=== PATIENT | female | born 1990 | race Hispanic/Latino ===

== ENCOUNTER 2018-05-22 06:47 | Inpatient (IN) | payer OTHER ==
--- NOTE | 2018-05-22 08:11 | ED PDOC ---
HPI: Psych/Substance Abuse Time Seen by Provider: 05/22/18 07:08 Chief Complaint (Nursing): Psychiatric Evaluation Chief Complaint (Provider): Psychiatric Evaluation History Per: Patient, Family History/Exam Limitations: no limitations Onset/Duration Of Symptoms: Hrs Current Symptoms Are (Timing): Still Present Additional Complaint(s): Francheska Avalos is a 28 year old female with no past medical or psychiatric history who was brought to the ED by EMS for psychiatric evaluation. Patients uncle is at bedside providing additional history. Patient states that she might have had a panic attack this morning while she was in bed she felt paralyzed and couldnt move. She states that she has not been sleeping properly for over a week and attributes this to work and life stress. Uncle reports that relative called police and states that patient has not had any history of diagnosed psychiatric disorders. Patients admits that she has had previous suicidal thoughts but is unsure of their extent. Of note, uncle notes that patient lost her brother a couple months ago due to a drug overdose. Patient offers no other medical complaints at this time. PMD: none provided Past Medical History Reviewed: Historical Data, Nursing Documentation, Vital Signs Vital Signs: Last Vital Signs Temp 97.5 F L 05/22/18 06:53 Pulse 122 H 05/22/18 06:53 Resp 25 H 05/22/18 06:53 BP 145/79 05/22/18 06:53 Pulse Ox 100 05/22/18 06:53 - Medical History PMH: No Chronic Diseases - Surgical History Surgical History: No Surg Hx - Family History Family History: States: Unknown Family Hx - Social History Current smoker - smoking cessation education provided: No Alcohol: Social Drugs: Denies - Allergies Allergies/Adverse Reactions: Allergies Allergy/AdvReac Type Severity Reaction Status Date / Time No Known Allergies Allergy Verified 05/22/18 07:04 Review of Systems ROS Statement: Except As Marked, All Systems Reviewed And Found Negative Psych: Positive for: Other (Panic attack) Physical Exam - Reviewed Nursing Documentation Reviewed: Yes Vital Signs Reviewed: Yes - Physical Exam Appears: Positive for: Non-toxic, No Acute Distress Head Exam: Positive for: ATRAUMATIC, NORMAL INSPECTION, NORMOCEPHALIC Skin: Positive for: Normal Color, Warm, DRY Eye Exam: Positive for: Normal appearance Respiratory: Negative for: Respiratory Distress Extremity: Positive for: Normal ROM Neurologic/Psych: Positive for: Alert, Oriented. Negative for: Motor/Sensory Deficits - Laboratory Results Result Diagrams: 05/22/18 09:35 05/22/18 09:35 - ECG O2 Sat by Pulse Oximetry: 100 (RA) Pulse Ox Interpretation: Normal Medical Decision Making Medical Decision Making: Time: 7:37 Plan: --Crisis Evaluation Scribe Attestation: Documented by Juju Valencia, acting as a scribe for Dorie Randall MD. Provider Scribe Attestation: All medical record entries made by the Scribe were at my direction and personally dictated by me. I have reviewed the chart and agree that the record accurately reflects my personal performance of the history, physical exam, medical decision making, and the department course for this patient. I have also personally directed, reviewed, and agree with the discharge instructions and disposition. labs reviewed. no acute findings. Disposition - Clinical Impression Clinical Impression: Depression - Patient ED Disposition Is Patient to be Admitted: Yes Doctor Will See Patient In The: Hospital - Disposition Disposition: Transfer of Care Disposition Time: 10:15 Condition: STABLE Instructions: Depression Forms: [employer] (Indonesian) - Pt Status Changed To: Hospital Disposition Of: Inpatient - Admit Certification Admit to Inpatient:: After my assessment, the patient will require hospitalization for at least two midnights. This is because of the severity of symptoms shown, intensity of services needed, and/or the medical risk in this patient being treated as an outpatient. - POA Present On Arrival: None
[2018-05-22 10:03] LABS: BASO % 0.2 % (0.0-2.0); HEMOGLOBIN 13.6 g/dL (12.0-16.0); LYMPH # 1.6 K/uL (1.0-4.3); LYMPH % 15.8 % (20.0-40.0); MEAN CELL VOLUME 84.3 fl (81.0-99.0); MEAN CORPUSCULAR HEMOGLOBIN 27.6 pg (27.0-31.0); MEAN CORPUSCULAR HGB CONC 32.8 g/dL (33.0-37.0); MEAN PLATELET VOLUME 8.2 fl (7.2-11.7); MONO # 0.5 K/uL (0.0-0.8); MONO % 4.7 % (0.0-10.0); NEUT # 7.8 K/uL (1.8-7.0); NEUT % 79.3 % (50.0-75.0); RBC 4.91 Mil/uL (3.80-5.20); WHITE BLOOD COUNT 9.9 K/uL (4.8-10.8)
[2018-05-22 10:17] LABS: SQUAMOUS EPITHIAL 4 /hpf (0-5); URINE BACTERIA RARE (<OCC); URINE BILIRUBIN NEGATIVE (NEGATIVE); URINE BLOOD LARGE (NEGATIVE); URINE CLARITY CLOUDY (Clear); URINE COLOR YELLOW (YELLOW); URINE GLUCOSE (UA) NEG (NEGATIVE); URINE LEUKOCYTE ESTERASE NEG Leu/uL (Negative); URINE PROTEIN NEGATIVE (NEGATIVE); URINE UROBILINOGEN 0.2-1.0 mg/dL (0.2-1.0)
[2018-05-22 10:22] LABS: ALB/GLOB RATIO 1.3 (1.0-2.1); ALBUMIN 4.7 g/dL (3.5-5.0); ALT/SGPT 22 U/L (9-52); AST/SGOT 27 U/L (14-36); BLOOD UREA NITROGEN 9 mg/dl (7-17); CALCIUM 9.8 mg/dL (8.4-10.2); GFR NON-AFRICAN AMERICAN > 60
[2018-05-22 10:32] LABS: BARBITURATES, UR NEGATIVE (NEGATIVE); BENZODIAZEPINES, UR NEGATIVE (NEGATIVE); OPIATES, UR NEGATIVE (NEGATIVE); PHENCYCLIDINE, UR NEGATIVE (NEGATIVE)
--- NOTE | 2018-05-22 10:32 | RAD ---
Date of service: 05/22/2018 PROCEDURE: CHEST RADIOGRAPH, 1 VIEW HISTORY: medical clearnce COMPARISON: None available. FINDINGS: LUNGS: Clear. Study slightly apical lordotic projection PLEURA: No pneumothorax or pleural fluid seen. CARDIOVASCULAR: No aortic atherosclerotic calcification present. Normal. OSSEOUS STRUCTURES: No significant abnormalities. VISUALIZED UPPER ABDOMEN: Normal. OTHER FINDINGS: None. IMPRESSION: No active disease.
[2018-05-22 11:29] VITALS: O2SAT 98
[2018-05-22] MEDS ORDERED: DiphenhydrAMINE 50 mg/ml Inj IM PRN (12:39)
[2018-05-22] MEDS ORDERED: Alum-Mag Hydrox-Simethicone Susp (30 mL) PO PRN (12:39)
[2018-05-22] MEDS ORDERED: Magnesium Hydroxide Susp 30 ml UD PO PRN (12:39)
--- NOTE | 2018-05-22 14:50 | PCM.PSYCH ---
Initial Psychiatric Evaluation - Initial Psychiatric Evaluation Type of Admission: Voluntary Legal Status: Capacity Chief Complaint (in patient's own words): I feel I could not continue in life like that History of Present Illness and Precipitating Events: pt is 28 ys old female currently not in formal psychiatric treatment, brought to ER by EMS after expressing a panic attack feeling her body is paralyzed and experiencing paranoid delusions feeling that there are people who invaded her house to hate her pt has been increasingly depressed since last october as she lost her brother after he overdosed on opiates and was brain for four days, pt also has been having difficulties at work and feeling that she is being mistreated, last week pt broke up a relation she had for past three years, pt reported depressed mood feeling hopeless and helpless, low energy, increased anxiety with panic attacks feeling as if her body is paralyzed , poor sleep and poor appetite , paranoid delusions, feeling being monitored and having people in her house following her reported passive suicidal ideation without active [plan denied perceptual disturbances, denied substance use Current Medications: Active Medications Generic Name Dose Route Start Last Admin Trade Name Freq PRN Reason Stop Dose Admin Acetaminophen 650 mg 05/22/18 12:39 Tylenol 325mg Tab PO Q4 PRN Pain, moderate (4-7) Al Hydrox/Mg Hydrox/Simethicone 30 ml 05/22/18 12:39 Maalox Plus 30 Ml PO Q4 PRN Dyspepsia Diphenhydramine HCl 50 mg 05/22/18 12:39 Benadryl IM Q6 PRN Extrapyramidal S/S Unable PO Diphenhydramine HCl 50 mg 05/22/18 12:39 Benadryl PO Q6 PRN Extrapyramidal Symptoms Escitalopram Oxalate 5 mg 05/22/18 14:30 Lexapro PO 05/22/18 14:31 STAT STA Escitalopram Oxalate 5 mg 05/23/18 09:00 Lexapro PO DAILY VU Haloperidol 5 mg 05/22/18 12:39 Haldol PO Q4 PRN Agitation Haloperidol Lactate 5 mg 05/22/18 12:39 Haldol IM Q4 PRN Agitation, Unable to Take PO Lorazepam 2 mg 05/22/18 12:39 Ativan IM Q4 PRN Anxiety/Agitation,Unable PO Lorazepam 1 mg 05/22/18 14:29 Ativan PO Q8 PRN Anxiety Magnesium Hydroxide 30 ml 05/22/18 12:39 Milk Of Magnesia PO HS PRN Constipation Trazodone HCl 50 mg 05/22/18 22:00 Desyrel PO HS VU Past Psychiatric History - Past Psychiatric History Nature of Treatment: pt received psychotherapy , no hx of treatment by psychiatrist History of ETOH/Drug Use: denied History of Family Illness: brother, hx of substance use Pertinent Medical Hx (Current Medical&Sleep Prob, Allergies): Allergies Allergy/AdvReac Type Severity Reaction Status Date / Time No Known Allergies Allergy Verified 05/22/18 07:04 Norgestimate-Ethinyl Estradiol [Syn-Cs-Kkpywqib Tablet] 1 tab PO DAILY 05/22/18 Mental Status Examination - Personal Presentation Personal Presentation: Looks stated age - Affect Affect: Constricted, Depressed - Motor Activity Motor Activity: Psychomotor Retardation - Reliability in Providing Information Reliability in Providing Information: Good - Speech Speech: Relevant - Mood Mood: Depressed, Anxious - Formal Thought Process Formal Thought Process: Circumstantial - Obsessions/Compulsions Obsessions: No Compulsions: No - Cognitive Functions Orientation: Person, Place, Situation, Time Attention/Concentration: Attentive Judgement: Intact, as evidence by: Good judgement, Intact, as evidence by: Insight regarding need for hospitalization - Risk Risk: Suicidal, Diminished functioning - Strength & Assets Inventory Strength & Assets Inventory: Family support, Employment history - Limitations Additional comments: relationship problems DSM 5 DX - DSM 5 DSM 5 Diagnosis: major depression severe with psychotic features panic disorder - Recommended/Plan of Treatment Treatment Recommendations and Plan of Treatment: start lexapro 5mg / trazodone 50mg / will increase gradually CBT group and supportive therapy
--- NOTE | 2018-05-22 16:29 | CP.PCM.CON ---
History of Present Illness - History of Present Illness History of Present Illness: Pt is a 26 yo female with past medical history of dysmenorrhea is admitted to psych for panic disorder. The patient felt that her body was paralyzed, with feelings of paranoia. She states that the recent of her brother, due to an overdose a month ago, with decrease sleep, and increase work demand, contributed to her current condition. The patient works as a marketing stragegist for [employer] and states that she went back to work prematurely after her brother's . Patient is complaining of mild burning upon urination and constipation. patient denies polyurea, polydipsea, polyphasia, or superpubic tenderness. abdominal exam was non contributory. PMHx- Dysmenorrhea Allergies- PNC Medications-Trylosprintec Social Hx: patient drinks 4-5 drinks a week and smokes 1-2 cigarretes a week. patient states she used cocaine a few times in college but none since then. FHx: suicide (brother) Review of Systems - Review of Systems All systems: reviewed and no additional remarkable complaints except Past Patient History - Past Social History Alcohol: Social Drugs: Denies - CARDIAC Hx Cardiac Disorders: No - PULMONARY Hx Respiratory Disorders: No - NEUROLOGICAL Hx Neurological Disorder: Yes Hx Syncope: Yes - HEENT Hx HEENT Problems: No - RENAL Hx Chronic Kidney Disease: No - ENDOCRINE/METABOLIC Hx Endocrine Disorders: No - HEMATOLOGICAL/ONCOLOGICAL Hx Blood Disorders: No - INTEGUMENTARY Hx Dermatological Problems: No - MUSCULOSKELETAL/RHEUMATOLOGICAL Hx Musculoskeletal Disorders: No - GASTROINTESTINAL Hx Gastrointestinal Disorders: No - GENITOURINARY/GYNECOLOGICAL Hx Genitourinary Disorders: No - PSYCHIATRIC Hx Substance Use: No - SURGICAL HISTORY Hx Surgeries: Yes Other/Comment: Right ring finger surgery - ANESTHESIA Hx Anesthesia: Yes Hx Anesthesia Reactions: No Hx Malignant Hyperthermia: No Meds Allergies/Adverse Reactions: Allergies Allergy/AdvReac Type Severity Reaction Status Date / Time No Known Allergies Allergy Verified 05/22/18 07:04 - Medications Medications: Current Medications Acetaminophen (Tylenol 325mg Tab) 650 mg PO Q4 PRN PRN Reason: Pain, moderate (4-7) Al Hydrox/Mg Hydrox/Simethicone (Maalox Plus 30 Ml) 30 ml PO Q4 PRN PRN Reason: Dyspepsia Diphenhydramine HCl (Benadryl) 50 mg IM Q6 PRN PRN Reason: Extrapyramidal S/S Unable PO Diphenhydramine HCl (Benadryl) 50 mg PO Q6 PRN PRN Reason: Extrapyramidal Symptoms Escitalopram Oxalate (Lexapro) 5 mg PO DAILY VU Haloperidol (Haldol) 5 mg PO Q4 PRN PRN Reason: Agitation Haloperidol Lactate (Haldol) 5 mg IM Q4 PRN PRN Reason: Agitation, Unable to Take PO Lorazepam (Ativan) 2 mg IM Q4 PRN PRN Reason: Anxiety/Agitation,Unable PO Lorazepam (Ativan) 1 mg PO Q8 PRN PRN Reason: Anxiety Magnesium Hydroxide (Milk Of Magnesia) 30 ml PO HS PRN PRN Reason: Constipation Trazodone HCl (Desyrel) 50 mg PO HS VU Physical Exam - Constitutional Appears: In Acute Distress - Head Exam Head Exam: NORMAL INSPECTION - Eye Exam Eye Exam: Normal appearance Pupil Exam: NORMAL ACCOMODATION - ENT Exam ENT Exam: Mucous Membranes Moist - Neck Exam Neck exam: Positive for: Normal Inspection - Respiratory Exam Respiratory Exam: Clear to Auscultation Bilateral, NORMAL BREATHING PATTERN. absent: Rhonchi, Wheezes - Cardiovascular Exam Cardiovascular Exam: REGULAR RHYTHM, +S1, +S2 - GI/Abdominal Exam GI & Abdominal Exam: Normal Bowel Sounds, Soft - Back Exam Back exam: absent: CVA tenderness (L), CVA tenderness (R) - Skin Skin Exam: Dry, Warm Results - Vital Signs Recent Vital Signs: Last Vital Signs Temp 99.5 F 05/22/18 11:33 Pulse 78 05/22/18 11:33 Resp 20 05/22/18 11:33 BP 138/78 05/22/18 11:33 Pulse Ox 98 05/22/18 11:24 - Labs Result Diagrams: 05/22/18 09:35 05/22/18 09:35 Labs: Laboratory Results - last 24 hr 05/22/18 05/22/18 05/22/18 09:35 09:35 09:43 WBC 9.9 RBC 4.91 Hgb 13.6 Hct 41.4 MCV 84.3 MCH 27.6 MCHC 32.8 L RDW 13.0 Plt Count 383 MPV 8.2 Neut % (Auto) 79.3 H Lymph % (Auto) 15.8 L Bos[place] % (Auto) 4.7 Eos % (Auto) 0.0 Baso % (Auto) 0.2 Neut # (Auto) 7.8 H Lymph # (Auto) 1.6 Bos[place] # (Auto) 0.5 Eos # (Auto) 0.0 Baso # (Auto) 0.0 Sodium 140 Potassium 3.9 Chloride 98 Carbon Dioxide 24 Anion Gap 22 H BUN 9 Creatinine 0.6 L Est GFR ( Amer) > 60 Est GFR (Non-Af Amer) > 60 Random Glucose 150 H Calcium 9.8 Total Bilirubin 1.1 AST 27 ALT 22 Alkaline Phosphatase 59 Total Protein 8.3 H Albumin 4.7 Globulin 3.5 Albumin/Globulin Ratio 1.3 Urine Color Urine Clarity Urine pH Ur Specific Cypress Urine Protein Urine Glucose (UA) Urine Ketones Urine Blood Urine Nitrate Urine Bilirubin Urine Urobilinogen Ur Leukocyte Esterase Urine RBC (Auto) Urine Microscopic WBC Ur Squamous Epith Cells Urine Bacteria Urine Opiates Screen Negative Urine Methadone Screen Negative Ur Barbiturates Screen Negative Ur Phencyclidine Scrn Negative Ur Amphetamines Screen Negative U Benzodiazepines Scrn Negative U Oth Cocaine Metabols Negative U Cannabinoids Screen Negative Alcohol, Quantitative < 10 05/22/18 09:43 WBC RBC Hgb Hct MCV MCH MCHC RDW Plt Count MPV Neut % (Auto) Lymph % (Auto) Bosque % (Auto) Eos % (Auto) Baso % (Auto) Neut # (Auto) Lymph # (Auto) Bos[place] # (Auto) Eos # (Auto) Baso # (Auto) Sodium Potassium Chloride Carbon Dioxide Anion Gap BUN Creatinine Est GFR ( Amer) Est GFR (Non-Af Amer) Random Glucose Calcium Total Bilirubin AST ALT Alkaline Phosphatase Total Protein Albumin Globulin Albumin/Globulin Ratio Urine Color Yellow Urine Clarity Cloudy Urine pH 6.0 Ur Specific [place] 1.016 Urine Protein Negative Urine Glucose (UA) Neg Urine Ketones 80 Urine Blood Large Urine Nitrate Positive H Urine Bilirubin Negative Urine Urobilinogen 0.2-1.0 Ur Leukocyte Esterase Neg Urine RBC (Auto) 3 Urine Microscopic WBC 3 Ur Squamous Epith Cells 4 Urine Bacteria Rare Urine Opiates Screen Urine Methadone Screen Ur Barbiturates Screen Ur Phencyclidine Scrn Ur Amphetamines Screen U Benzodiazepines Scrn U Oth Cocaine Metabols U Cannabinoids Screen Alcohol, Quantitative Assessment & Plan - Assessment and Plan (Free Text) Assessment: Assessment 26 yo female with past medical history of dysmenorrhea is admitted to psych for panic disorder. 1) Panic disorder- follow recommendations of psych as per treatment 2) Dysuria - urine was collected and was found with nitrates positive and patient was sy mptomatic treat with nitrofurantoin 3 days q 6. - urine culture to be obtained as well. 3) Constipation: patient states she has been constipated for the last few days. colace 100mg hs. 4) DVT prophylaxis - Ambulate
[2018-05-23 11:19] LABS: T4 14.1 ug/dl (5.5-11.0)
--- NOTE | 2018-05-23 14:55 | PCM.PYCHPN ---
Psychiatric Progress Note - Psychiatric Progress Note Patient seen today, length of contact: pt evaluated discussed with team chart reviewed Patient Chief Complaint: I could not find a reason why I acted like that but I am terrified Problems Identified/Issues Discussed: pt evaluated , presenting with anxious mood and affect, guarded paranoid, reporting feeling that she is being mistreated by staff and watched in her room, uncomfortable as she feels observed, as per staff pt had poor sleep yesterday and had an episode when she started crying and disrobing herself, patient was suspicous would not take the medications by mouth had to be given IM prn medications for being danger to self pt continues to have delusions of persecution and requesting to be discharged, psychoeducation provided, discussed with pt the need to continue on medications and with treatment,pt denied command hallucinations, denied thoughts of self harm on the unit treatment plan discussed with patient's mother upon her consent DSM 5 Symptoms Update: major depression severe with psychotic features panic disorder Medication Change: Yes (start risperidone ) Medical Record Reviewed: Yes Mental Status Examination - Cognitive Function Orientation: Person, Place, Situation, Time Attention: WNL Concentration: Poor Association: WNL Fund of Knowledge: WNL Decription of patient's judgement and insights: partial insight fair judgment - Mood Mood: Depressed, Anxious - Affect Affect: Constricted, Depressed - Speech Speech: Soft - Formal Thought Process Formal Thought Process: Delusions, Paranoia, Circumstantial Psychotic Thoughts and Behaviors: paranoid delusions - Suicidal Ideation Suicidal Ideation: No - Homicidal Ideation Homicidal Ideation: No Goal/Treatment Plan - Goal/Treatment Plan Need for Continued Stay: Remain at risks for inpatient hospitalization, Severe depression anxiety, Discharge may exacerbated symptoms Progress Toward Problem(s) and Goals/Treatment Plan: i lexapro 5mg / trazodone 50mg / will increase gradually start risperidone mtab 1mg qhs with cogentin 0.5mg qhs CBT group and supportive therapy
[2018-05-23] MEDS: Risperidone M tab 1 MG PO SCH (21:15)
--- NOTE | 2018-05-24 01:29 | PCM.BM ---
<Cinthya Ogden - Last Filed: 05/24/18 01:30> Treatment Plan Problems - Problems identified on initial assessmt Anxiety Date Initiated: 05/24/18 Time Initiated: 01:27 Assessment reference: NA Status: Active Panic Attacks Date Initiated: 05/24/18 Time Initiated: :28 Assessment reference: NA Status: Active Altered Sleep Patterns Date Initiated: 05/24/18 Time Initiated: :28 Assessment reference: NA Status: Active Treatment assets and liabiliti Patient Assests: cooperative, ADL independent, physically healthy, negotiates basic needs, cognitively intact Patient Liabilities: live alone - Milieu Protocol Maintain good personal hygiene: daily Encourage regular showers, every shift Re mind patient to perform daily oral care (prn), every shift Assist patient to perform ADL's (prn) Conduct patient checks and document Observation sheet: Q15 minutes Maintain personal safety: every shift Educate patient to report safety concerns to staff, every shift Monitor environment for contraband/sharps Medication safety: Monitor for expected outcome, potential side effects: every shift, Assess barriers to learning: every shift, Assess readiness for medication education: every shift Milieu Narrative: i lexapro 5mg / trazodone 50mg / will increase gradually start risperidone mtab 1mg qhs with cogentin 0.5mg qhs CBT group and supportive therapy Discharge/Continuing Care - Treatment Team Participation Patient/Family/SO Statement: i lexapro 5mg / trazodone 50mg / will increase gradually start risperidone mtab 1mg qhs with cogentin 0.5mg qhs CBT group and supportive therapy <Ruddy Manuel J - Last Filed: 05/26/18 19:21> Family Contact Family involvement: Family/SO is involved Family contact: Patient agrees to contact, Family has been contacted by patient, Telephone contact initiated by staff Family contact name: Karyna - Mother Family contacted how many times per week?: 2 Family contact comment: Reinforced Ironworker spoke with pt's mother, Karyna [phone], to discuss medications that have been started (Risperdal and Lexapro) and spoke about pt's symptoms of anxiety, racing thoughts and insomnia and how the medications would help. Reinforced Ironworker used psychoeducation to allow pt's mother to understand the importance of hospitalization and the hospital's use of PRN's when pt had a psychotic episode on the unit. Pt's mother spoke about pt's stressful job and her cumulative psychosocial loses. - Goals for Treatment Patient goals for treatment: Pt would like her psychotic symptoms, anxiety and insomnia to be lessened. Discharge/Continuing Care - Education Needs Education Needs: Family Medication, Family Diagnosis/Disease Process, Family Coping Skills, Family Aftercare Safety Plan, Patient Medication, Patient Diagnosis/Disease Process, Patient Coping Skills, Patient Aftercare Safety Plan - Discharge Discharge Criteria: Tolerates medication w/o severe side effects, Free of agitation, Normal sleep pattern, Reduction of target symptoms Discharge to:: Home, With Family - Treatment Team Participation Discussed with Family/SO: Yes Was Patient/Family/SO present at Treatment Team Meeting: Yes <Madison Meeks - Last Filed: 05/27/18 13:01> - Diagnosis (1) Depression Status: Acute Interventions: 05/27/18 13:00 psychotherapy, pharmacotherapy
--- NOTE | 2018-05-24 14:13 | PCM.PYCHPN ---
Psychiatric Progress Note - Psychiatric Progress Note Patient seen today, length of contact: pt evaluated discussed with team chart reviewed Patient Chief Complaint: I was so paranoid and I coukld not think right Problems Identified/Issues Discussed: pt evaluated WITH TREATMENT TEAM, PRESENTING WITH ANXIOUS MOOD AND AFFECT, INITIALLY AMBIVALENT ABOUT BEING IN THE HOSPITAL pt however presenting with a more clear thought process, stating she can remember being paranoid and acting out of character continues to be tearfull and down when talking about the traumatic loss of her brother and verbalizing PTSD symptoms including flashbacks of witnessing the of her father by heart attack psychoeducation provided, discussed with pt the need to continue with treatment and medication adjustment, also discussed importance of starting therapy on discharge pt denied active thoughts of self harm on the unit, denied perceptual disturbances, no reported side effects of medications DSM 5 Symptoms Update: major depression recurrent severe with psychotic features PTSD Medication Change: No (start risperidone ) Medical Record Reviewed: Yes Mental Status Examination - Cognitive Function Orientation: Person, Place, Situation, Time Attention: WNL Concentration: Poor Association: WNL Fund of Knowledge: WNL Decription of patient's judgement and insights: partial insight fair judgment - Mood Mood: Depressed, Anxious - Affect Affect: Constricted, Depressed - Speech Speech: Soft - Formal Thought Process Formal Thought Process: Delusions, Paranoia, Circumstantial Psychotic Thoughts and Behaviors: paranoid delusions - Suicidal Ideation Suicidal Ideation: No - Homicidal Ideation Homicidal Ideation: No Goal/Treatment Plan - Goal/Treatment Plan Need for Continued Stay: Remain at risks for inpatient hospitalization, Severe depression anxiety, Discharge may exacerbated symptoms Progress Toward Problem(s) and Goals/Treatment Plan: lexapro 10mg daily trazodone 50mg / will increase gradually risperidone mtab 1mg qhs with cogentin 0.5mg qhs CBT group and supportive therapy
[2018-05-24] MEDS: NORGESTIMATE ETHINYL ESTRADIOL PO SCH (18:19)
[2018-05-24] MEDS: Risperidone M tab 1 MG PO SCH (21:07)
[2018-05-24 21:08] VITALS: RESP 18
[2018-05-25] MEDS: NORGESTIMATE ETHINYL ESTRADIOL PO SCH (08:59)
[2018-05-25] MEDS: Nasal Spray(Ocean spray) NAS PRN ×2 (13:04→21:09)
--- NOTE | 2018-05-25 16:41 | PCM.PYCHPN ---
Psychiatric Progress Note - Psychiatric Progress Note Patient seen today, length of contact: pt evaluated discussed with team chart reviewed Patient Chief Complaint: was feeling anxious, having symptoms of anxiety, thinking about past trauma, decreased sleep-reports feeling calmer, does admit increased stomach gases, periods of diarrhea constipation. staff report pt has been rx adherent seen about unit. pt denies side effects rx Problems Identified/Issues Discussed: alteration in mood alteration in cognition alteration in sleep Medical Problems: per chart Diagnostic Results: per psychiatry per medicine per nursing per health social work professor per recreational therapy DSM 5 Symptoms Update: alteration in mood, cognition, poor Medication Change: No (start risperidone ) Medical Record Reviewed: Yes Consults ordered or reviewed: pt seen by hospitalist Mental Status Examination - Cognitive Function Orientation: Person, Place, Situation, Time Attention: WNL Concentration: Poor Association: WNL Fund of Knowledge: WNL Decription of patient's judgement and insights: impaired - Mood Mood: Depressed, Anxious - Affect Affect: Constricted, Depressed - Speech Speech: Soft - Formal Thought Process Formal Thought Process: Delusions, Paranoia, Circumstantial - Suicidal Ideation Suicidal Ideation: No - Homicidal Ideation Homicidal Ideation: No Goal/Treatment Plan - Goal/Treatment Plan Need for Continued Stay: Remain at risks for inpatient hospitalization, Severe depression anxiety, Discharge may exacerbated symptoms Progress Toward Problem(s) and Goals/Treatment Plan: inpt milieu adjust meds per status staff to call hospitalist evaluate possible gi status discharge planning in progress Estimated Date of D/C: 05/31/18 - Smoking Cessation Smoking Cessation Initiated: No Reason for not providing: deferred
[2018-05-25] MEDS: Risperidone M tab 1 MG PO SCH (21:08)
[2018-05-26] MEDS: Nasal Spray(Ocean spray) NAS PRN (20:06)
[2018-05-26] MEDS: Risperidone M tab 1 MG PO SCH (21:14)
--- NOTE | 2018-05-26 22:38 | PCM.PYCHPN ---
Psychiatric Progress Note - Psychiatric Progress Note Patient seen today, length of contact: pt evaluated discussed with team chart reviewed Patient Chief Complaint: was feeling anxious, having symptoms of anxiety, thinking about past trauma, decreased sleep-reports feeling calmer, does admit increased stomach gases, periods of diarrhea constipation. staff report pt has been rx adherent seen about unit. pt denies side effects rx Problems Identified/Issues Discussed: alteration in mood alteration in cognition alteration in sleep Medical Problems: per chart Diagnostic Results: per psychiatry per medicine per nursing per community mental health social worker per recreational therapy DSM 5 Symptoms Update: improving mood sleep no reported side effects medication Medication Change: No Medical Record Reviewed: Yes Consults ordered or reviewed: pt being seen by medical team Mental Status Examination - Cognitive Function Orientation: Person, Place, Situation, Time Attention: WNL Concentration: Poor Association: WNL Fund of Knowledge: WNL Decription of patient's judgement and insights: impaired - Mood Mood: Anxious - Affect Affect: Broad - Speech Speech: Soft - Formal Thought Process Formal Thought Process: Circumstantial - Suicidal Ideation Suicidal Ideation: No - Homicidal Ideation Homicidal Ideation: No Goal/Treatment Plan - Goal/Treatment Plan Need for Continued Stay: Remain at risks for inpatient hospitalization, Severe depression anxiety, Discharge may exacerbated symptoms Progress Toward Problem(s) and Goals/Treatment Plan: inpt milieu adjust meds per status staff to call hospitalist evaluate possible gi status discharge planning in progress Estimated Date of D/C: 05/31/18 - Smoking Cessation Smoking Cessation Initiated: No Reason for not providing: pt defers
[2018-05-27 10:20] VITALS: BP 111/72; PULSE 98; TEMP 97.5
[2018-05-27] MEDS: NORGESTIMATE ETHINYL ESTRADIOL PO SCH (11:41)
--- NOTE | 2018-05-27 13:06 | PCM.PYCHPN ---
Psychiatric Progress Note - Psychiatric Progress Note Patient seen today, length of contact: pt evaluated discussed with team chart reviewed Patient Chief Complaint: I had hard time sleeping last night Problems Identified/Issues Discussed: PT EVALUATED , PRESENTING WITH BRIGHTER AFFECT, LESS DEPRESSED AND LESS ANXIOUS, REPORTED CLEARING OFF OF THE PARANOID DELUSIONS, NO REPORTED SIDE EFFECTS OF MEDICATIONS, PT REPORTED INTERMITTENT INSOMNIA, DISCUSSED INCREASING DOSE OF TRAZODONE, NO REPORTED PERCEPTUAL DISTURBANCES, NO CURRENT REPORTED THOUGHTS OF SELF HARM DSM 5 Symptoms Update: major depression with psychotic features ptsd Medication Change: Yes (INCREASE TRAZODONE ) Medical Record Reviewed: Yes Mental Status Examination - Cognitive Function Orientation: Person, Place, Situation, Time Attention: WNL Concentration: WNL Association: WNL Fund of Knowledge: WNL - Mood Mood: Anxious - Affect Affect: Broad - Speech Speech: Appropriate, Soft - Formal Thought Process Formal Thought Process: No Impairment - Suicidal Ideation Suicidal Ideation: No - Homicidal Ideation Homicidal Ideation: No Goal/Treatment Plan - Goal/Treatment Plan Need for Continued Stay: Remain at risks for inpatient hospitalization, Severe depression anxiety, Discharge may exacerbated symptoms Progress Toward Problem(s) and Goals/Treatment Plan: lexapro 10mg daily increase trazodone 100mg / risperidone mtab 1mg qhs with cogentin 0.5mg qhs CBT group and supportive therapy Estimated Date of D/C: 05/31/18
[2018-05-27] MEDS: Nasal Spray(Ocean spray) NAS PRN ×2 (15:19→21:07)
[2018-05-27] MEDS: Risperidone M tab 1 MG PO SCH (21:05)
[2018-05-27] MEDS ORDERED: NORGESTIMATE ETHINYL ESTRADIOL PO SCH (22:00)
--- NOTE | 2018-05-28 05:23 | PCM.RRT ---
SAND MILL OPERATOR Nurse Assessment - Situation SAND MILL OPERATOR Responder Arrival Time: 05:03 Room Number: [id number] SAND MILL OPERATOR Reason for Call: Hypotension SAND MILL OPERATOR Called By: RN - IV IV Inserted during SAND MILL OPERATOR?: No - Respiratory Received Nebulizer Treatments: No Was the Patient Ventilated with Bag/Mask 100% O2?: No Secretions Suctioned?: No Was the Patient Intubated?: No Was the Patient Placed on a Ventilator?: No CPR started during SAND MILL OPERATOR?: No - [place] Coma Scale Coma Scale Eye Opening: Spontaneous Coma Scale Verbal: Oriented - Time SAND MILL OPERATOR Ended Time SAND MILL OPERATOR Ended: 05:10 - Vital Signs at end of SAND MILL OPERATOR Vital Signs at end of SAND MILL OPERATOR: BP: 96/58 HR: 64 SATURATION: 99% ROOM AIR - Recommendations SAND MILL OPERATOR Level of Care Recommendations: Discharge to Emergency Room I.Reason for SAND MILL OPERATOR - A) Acute Change in Patient: (Select all that apply): Staff member or family is worried about patient Subjective: 28 yo female with history of menorrhagia- SAND MILL OPERATOR was called by RN who saw the pt was pale and about to faint. BP was taken at that time and systolic was noted to be in the 90's. At that time the patient was guided to the floor, she did not hit her head. Patient is alert and responsive and denies chest pain or dyspnea. She reports she has had heavy menstrual bleeding for 2 week duration. Vitals: BP: 100/52 HR: 67 O2 Saturation: 100% on room air. Interventions: Patient was transferred to the E. R. as pt was located in the Psychiatric unit and appropriate lab testing and IV placement could not be done in that unit. - Neurological Status (Select all that apply): Alert, Responsive, Oriented, Verbal, Follows Commands - Respiratory Oxygen Delivery Method: Room Air - Constitutional Appears: Non-toxic, No Acute Distress Additional Comments: Pale - Head Head Exam: NORMAL INSPECTION - Eyes Eye Exam: Normal appearance - Cardiovascular Exam Cardiovascular Exam: REGULAR RHYTHM - Neurological Exam Neurological Exam: Alert, Awake, Oriented x3 - Extremities Exam Extremities Exam: Normal Inspection Plan - Assessment of Findings&Treatment Plan 28 yo female with history of Menorrhagia, SAND MILL OPERATOR was called for hypotension. Patient reports she has had her period for the past two weeks now. Plan: - Hypotension probably secondary to menorrhagia. - Transfer patient to Emergency room as IV access and labs could not be obtained due to being on the Psychiatric floor. SAND MILL OPERATOR end: 5:10am SAND MILL OPERATOR Leader: Dr. Mcgee Residents: Dr. Porter, PGY2 and Dr. Malcolm, PGY 1
--- NOTE | 2018-05-28 14:23 | PCM.PYCHDC ---
Mental Status Examination - Mental Status Examination Orientation: Person, Place, Situation Memory: Intact Mood: Neutral Affect: Broad Speech: Appropriate Attention: WNL Concentration: WNL Association: WNL Fund of Knowledge: WNL Formal Thought Process: No Impairment Description of patient's judgement and insight: partial insight fair judgment Psychotic Thoughts and Behaviors: PT ON DISCHARGE DENIED ANY CURRENT PSYCHOTIC SYMPTOMS , NON ELICITED Suicidal Ideation: No Current Homicidal Ideation?: No Discharge Summary - Discharge Note Reason for Hospitalization: pt is 28 ys old female currently not in formal psychiatric treatment, brought to ER by EMS after expressing a panic attack feeling her body is paralyzed and experiencing paranoid delusions feeling that there are people who invaded her house to hate her pt has been increasingly depressed since last october as she lost her brother after he overdosed on opiates and was brain for four days, pt also has been having difficulties at work and feeling that she is being mistreated, last week pt broke up a relation she had for past three years, pt reported depressed mood feeling hopeless and helpless, low energy, increased anxiety with panic attacks feeling as if her body is paralyzed , poor sleep and poor appetite , paranoid delusions, feeling being monitored and having people in her house following her reported passive suicidal ideation without active [plan denied perceptual disturbances, denied substance use Psychiatric History (includes Medical, Family, Personal Hx): pt received psychotherapy , no hx of treatment by psychiatrist Laboratory Data: Abnormal Lab Results 05/28/18 05:04 POC Glucose (mg/dL) 107 Consultations:: List each consultation separately and include: 1. Reason for request. 2. Findings. 3. Follow-up Summary of Hospital Course include:: 1. Description of specific treatment plan utilized for patients during their course of treatmen. 2. Summarize the time- course for resolution of acute symptoms and/or regressed behaviors. 3. Describe issues identified and worked on during hospitalization. 4. Describe medication utilized. 5. Describe medical problems identified and treated. 6. Reassessment of suicide risk Summary of Hospital Course: pt ON ADMISSION WAS PRESENTING WITH PARANOID DELUSIONS DEPRESSED MOOD AND ANXIOUS AFFECT PT WAS STARTED ON RISPERIDONE 1MG QHS , COGENTIN 0.5MG QHS AND LEXAPRO 5MG PT REPORTED POOR SLEEP, TRAZODONE 50MG STARTED AND INCREASED TO 100MG QHS, PT HOWEVER BECAME HYPOTENSIVE SO TRAZODONE WAS DECREASED TO 50MG QHS PT GRADUALLY PRESENTED WITH CLEARING OFF OF THE PARANOID DELUSIONS, PRESENTED WITH BRIGHTER AFFECT. REPORTED FEELING LESS DEPRESSED, NO REPORTED SIDE EFFECTS PT ATTENDED GROUPS, COMPLIANT WITH TREATMENT ON DISCHARGE MENTAL STATUS WAS STABLE, PT DENIED SUICIDAL OR HOMICIDAL IDEATION DENIED PERCEPTUAL DISTURBANCES - Diagnosis (1) Depression Current Visit: No Status: Acute - Final Diagnosis (DSM 5) Condition upon Discharge: STABLE DSM 5: MAJOR DEPRESSION SEVERE WITH PSYCHOTIC FEATURES PTSD Disposition: HOME/ ROUTINE Follow-up Treatment Plan: lexapro 10mg daily increase trazodone 100mg / risperidone mtab 1mg qhs with cogentin 0.5mg qhs CBT group and supportive therapy Prescriptions/Medication Reconciliation: Escitalopram [Lexapro] 10 mg PO DAILY 30 Days #30 tab Nitrofurantoin Macrocrystals [Macrobid] 100 mg PO BID 4 Days #8 cap Risperidone [Risperdal M-TAB] 1 mg PO HS 30 Days #30 odt traZODone [Desyrel] 50 mg PO HS PRN 30 Days #30 tab PRN Reason: Insomnia - Antipsychotic Medications Pt discharged on 2 or more routine antipsychotic medications: No
== END 2018-05-28 15:30 | disposition home or self-care (01) | DRG 885 ==
LOC: H.ER 06:47 → H.ERHOLD 10:39 → H.PSYCH 11:40 → TMPLOALOC 05-28 05:10 → UNDODISIN 05-28 05:10 → H.PSYCH 05-28 06:08
PROVIDERS: ADMIT Psychiatry & Neurology Psychiatry; ATTEND Psychiatry & Neurology Psychiatry
PROC: GZ51ZZZ Individual Psychotherapy, Behavioral (ICD-10-PCS; 2018-05-22)
PROC: GZ56ZZZ Individual Psychotherapy, Supportive (ICD-10-PCS; 2018-05-22)
PROC: GZHZZZZ Group Psychotherapy (ICD-10-PCS; principal; 2018-05-24)
DX: F33.3 Major depressive disorder, recurrent, severe with psychotic symptoms (principal); R45.851 Suicidal ideations; F41.0 Panic disorder [episodic paroxysmal anxiety]; F43.10 Post-traumatic stress disorder, unspecified; R30.0 Dysuria; K59.00 Constipation, unspecified; I95.9 Hypotension, unspecified; T43.215A Adverse effect of selective serotonin and norepinephrine reuptake inhibitors, initial encounter; Y92.239 Unspecified place in hospital as the place of occurrence of the external cause

== ENCOUNTER 2018-05-28 05:19 | Emergency (ER) | payer OTHER ==
[2018-05-28 05:20] VITALS: BMI 24.1
--- NOTE | 2018-05-28 06:17 | ED PDOC ---
Syncope/Near Syncope/Dizziness Time Seen by Provider: 05/28/18 05:23 Chief Complaint (Nursing): Syncope Chief Complaint (Provider): Syncope History Per: Patient History/Exam Limitations: no limitations Onset/Duration Of Symptoms: Sudden Onset Current Symptoms Are (Timing): Better Number Of Syncopal Episodes: 1 Activity At Onset Of Symptoms: Walking Seizure Or Post-ictal Symptoms: None Fall Associated With With Symptoms: No Additional Complaint(s): 28 year old female with s history of panic disorder and vasovagal syncope presents to the ED for evaluation of a syncopal episode that occurred just prior to arrival. Patient was admitted to the adult psychiatry floor for a panic attack. All day, the patient reports she had been concerned about her blood pressure. She woke up this morning around 04:30, walked to the nurses' station get water and started to feel dizzy as her vision went back. Because the patient has a history of syncopal episodes she sat down on the floor to avoid hitting her head. She states that she only passed out for a "very brief time" and that she often faints when she is nervous or if she sees blood. Of note, on her period, has been having vaginal bleeding for 2 weeks and under care of COMBUSTION ANALYST for irregular periods. Offers no other complaints. PMD: none provide Past Medical History Reviewed: Historical Data, Nursing Documentation, Vital Signs Vital Signs: Last Vital Signs Temp 98.4 F 05/28/18 05:20 Pulse 65 05/28/18 06:03 Resp 16 05/28/18 06:03 BP 112/72 05/28/18 06:03 Pulse Ox 99 05/28/18 06:03 - Medical History PMH: Depression Denies: Chronic Kidney Disease Other PMH: panic disorder and vasovagal syncope - Surgical History Surgical History: No Surg Hx - Family History Family History: States: Unknown Family Hx - Home Medications Home Medications: Ambulatory Orders Medication Instructions Recorded Norgestimate-Ethinyl Estradiol 1 tab PO DAILY 05/22/18 [[id number] Tablet] - Allergies Allergies/Adverse Reactions: Allergies Allergy/AdvReac Type Severity Reaction Status Date / Time No Known Allergies Allergy Verified 05/28/18 05:20 Review of Systems ROS Statement: Except As Marked, All Systems Reviewed And Found Negative Neurological: Positive for: Other Physical Exam - Reviewed Nursing Documentation Reviewed: Yes Vital Signs Reviewed: Yes - Physical Exam Appears: Positive for: Non-toxic, No Acute Distress Head Exam: Positive for: ATRAUMATIC, NORMAL INSPECTION, NORMOCEPHALIC Skin: Positive for: Normal Color, Warm, DRY Eye Exam: Positive for: EOMI, Normal appearance, PERRL Neck: Positive for: Normal, Painless ROM, Supple Cardiovascular/Chest: Positive for: Regular Rate, Rhythm. Negative for: Murmur Respiratory: Positive for: Normal Breath Sounds. Negative for: Wheezing, Respiratory Distress Gastrointestinal/Abdominal: Positive for: Normal Exam, Soft. Negative for: Tenderness Back: Positive for: Normal Inspection Extremity: Positive for: Normal ROM. Negative for: Deformity Neurologic/Psych: Positive for: Alert, Oriented (x 3). Negative for: Motor/Sensory Deficits - Laboratory Results Result Diagrams: 05/28/18 05:55 05/28/18 05:55 - ECG O2 Sat by Pulse Oximetry: 99 (RA) Pulse Ox Interpretation: Normal Medical Decision Making Medical Decision Makin:35 MDM: 28 year old female with a history of vasovagal syncope Patients's symptoms are all resolved Blood work EKG Likely readmit to 3NP Orders: --EKG --CMP --CBC 700 Patient has no anemia, electrolytes normal, EKG NSR PAtient is feeling much better Will admit to [facility] according to Crisis to complete psychiatric admission care Scribe Attestation: Documented by Bing Malone acting as a scribe for Shekhar Holm MD Provider Scribe Attestation: All medical record entries made by the Scribe were at my direction and personally dictated by me. I have reviewed the chart and agree that the record accurately reflects my personal performance of the history, physical exam, medical decision making, and the department course for this patient. I have also personally directed, reviewed, and agree with the discharge instructions and disposition. Disposition - Clinical Impression Clinical Impression: Depression - Disposition Disposition Time: 06:59 Condition: IMPROVED Forms: [facility] (Syrian)
[2018-05-28 06:26] LABS: BASO # 0.1 K/uL (0.0-0.2); BASO % 0.6 % (0.0-2.0); EOS # 0.1 K/uL (0.0-0.7); EOS % 1.7 % (0.0-4.0); HEMOGLOBIN 12.7 g/dL (12.0-16.0); LYMPH # 3.2 K/uL (1.0-4.3); LYMPH % 35.5 % (20.0-40.0); MEAN CELL VOLUME 85.9 fl (81.0-99.0); MEAN CORPUSCULAR HEMOGLOBIN 27.5 pg (27.0-31.0); MEAN PLATELET VOLUME 7.9 fl (7.2-11.7); MONO # 0.7 K/uL (0.0-0.8); MONO % 8.4 % (0.0-10.0); NEUT # 4.8 K/uL (1.8-7.0); NEUT % 53.8 % (50.0-75.0); RBC 4.63 Mil/uL (3.80-5.20); RED CELL DISTRIBUTION WIDTH 12.6 % (11.5-14.5); WHITE BLOOD COUNT 8.9 K/uL (4.8-10.8)
[2018-05-28 06:50] LABS: BLOOD UREA NITROGEN 14 mg/dl (7-17); GFR NON-AFRICAN AMERICAN > 60
[2018-05-28 07:42] VITALS: O2SAT 100
--- NOTE | 2018-05-28 08:56 | CARD ---
APPROVED REPORT Date of service: 05/28/2018 EKG Measurement Heart [id number] <Conclusion> Normal sinus rhythm ST elevation, consider early repolarization, pericarditis, or injury Abnormal ECG
[2018-05-28 10:11] VITALS: BP 101/76; PULSE 85; RESP 16; TEMP 98
== END 2018-05-28 10:24 | disposition short-term general hospital (02) ==
LOC: H.ER 05:19 → H.ERHOLD 06:58 → UNDOADMIN 06:58 → UNDODISIN 10:30
DX: F32.9 Major depressive disorder, single episode, unspecified (principal); R55 Syncope and collapse